=== PATIENT | female | born 1995 | race Asian ===

== ENCOUNTER 2018-03-02 21:20 | Emergency (ER) | payer OTHER ==
--- NOTE | 2018-03-02 21:30 | UC ---
Bite Injury/Animal HPI - HPI Summary HPI Summary: Patient is 22 year old without any significant past medical history who present today after a friend's dog scratched her right hand with the teeth. No open wound or bleeding Denies any fever, chills, cough chest pain or shortness of breath . Denies any abdominal pain , nausea or vomiting , diarrhea or constipation. - History of Current Complaint Stated Complaint: DOG SCRATCH Time Seen by Provider: 03/02/18 21:22 ?: No Onset/Duration: Sudden Onset, Lasting Hours Type of Bite: Pet - 6 month old husky Has Animal Been Immunized?: Yes Character: Abrasion/Laceration - scratch Associated Signs And Symptoms: Negative: Negative, Erythema, Drainage Hx of Bite: Unprovoked Animal Available for Observation: Yes - Allergies/Home Medications Allergies/Adverse Reactions: Allergies Allergy/AdvReac Type Severity Reaction Status Date / Time No Known Allergies Allergy Verified 03/02/18 21:37 PMH/Surg Hx/FS Hx/Imm Hx Previously Healthy: Yes Other Endocrine History: negative Other Cardiovascular History: negative Other Respiratory History: negative Other GI/ History: negative Other Neurological History: negative Other Psychological History: negative Other Cancer History: negative Review of Systems Constitutional: Negative Skin: Other - scratch wound on right wrist Eyes: Negative ENT: Negative Respiratory: Negative Cardiovascular: Negative Gastrointestinal: Negative Genitourinary: Negative Motor: Negative Neurovascular: Negative Musculoskeletal: Negative Neurological: Negative Psychological: Negative Is Patient Immunocompromised?: No All Other Systems Reviewed And Are Negative: Yes Physical Exam Triage Information Reviewed: Yes Appearance: Well-Appearing, No Pain Distress Vital Signs Reviewed: Yes Eyes: Positive: Conjunctiva Clear ENT: Positive: Hearing grossly normal. Negative: Nasal congestion, Nasal drainage, Muffled voice, Hoarse voice Respiratory Exam: Normal Respiratory: Positive: Chest non-tender, Lungs clear, Normal breath sounds. Negative: Crackles, Rhonchi, Stridor, Wheezing Cardiovascular: Positive: RRR, No Murmur, Pulses Normal Musculoskeletal Exam: Normal Neurological Exam: Normal Neurological: Positive: Alert Skin: Positive: Other - linear scratch without any open wound on right dorsal wrist , no bleeding or drainage Bite Injury Course/Dx - Course Course Of Treatment: Her TDAP is uptodate, had it last year . We discussed that dog be monitored. Plan to start her on antibiotics- augmentin , one dose given here. She expressed understanding . - Differential Dx/Diagnosis Provider Diagnoses: Scratch by dog teeth Discharge - Sign-Out/Discharge Documenting (check all that apply): Discharge/Admit/Transfer - Discharge Plan Condition: Stable Disposition: HOME Prescriptions: Amoxicillin/Clavulanate TAB* [Augmentin TAB 875*] 875 mg PO BID 10 Days #20 tab Patient Education Materials: Animal Bite (ED) Referrals: [facility] - [facility] [Primary Care Provider] - 1 Week Additional Instructions: Please start taking antibiotics. It has been prescribed and sent to your pharmacy Monitor the dog for any changes in behaviour or symptoms discussed. Plan to contact [facility] Return to ED if symptoms get worse. - Billing Disposition and Condition Condition: STABLE Disposition: HOME Images Hands: 1 - right wrist
[2018-03-02 21:37] VITALS: BP 114/72
[2018-03-02] MEDS ORDERED: Amoxicillin/Clavulanate TAB* 875 MG PO ONE (21:45)
== END 2018-03-02 21:58 | disposition home or self-care (01) ==
LOC: UCEAST 21:20
DX: S60.511A Abrasion of right hand, initial encounter (principal); W54.8XXA Other contact with dog, initial encounter; Y93.89 Activity, other specified; Y92.9 Unspecified place or not applicable
CPT/HCPCS: 99201; A9270-GY; G0463